=== PATIENT | female | born 1970 | race Caucasian/White ===

== ENCOUNTER → 2024-01-17 12:55 | Outpatient (REF) | payer OTHER, SELFPAY | LOC: HWRAD 12:55 | PROVIDERS: ATTENDING PHYSICIAN Podiatrist Foot & Ankle Surgery; FAMILY PHYSICIAN Internal Medicine | DX: M20.21 Hallux rigidus, right foot (principal); M20.22 Hallux rigidus, left foot | CPT/HCPCS: 73630 ==